=== PATIENT | female | born 1990 | race Hispanic/Latino ===

== ENCOUNTER 2017-11-18 15:30 | Outpatient (CLI) | payer BC ==
--- NOTE | 2017-11-18 17:11 | ULT ---
PELVIC ULTRASOUND: 11/18/17 HISTORY: Pelvic pain. FINDINGS: Multiple transabdominal and endovaginal sonographic images of the pelvis are obtained. The uterus demonstrates a normal sonographic appearance measuring 6.8 cm x 3.5 cm x 3.1 cm. The endom etrial stripe measures 0.4 cm which is within normal limits for patient's age. No fluid or fluid robbin ection is seen in the endometrial canal. The right ovary is enlarged measuring 7.5 cm x 4.2 cm x 5.7 cm. There is a large cystic lesion associ ated with the right ovary which measures 6.3 cm x 4.5 cm x 5.1 cm. Small amount of internal echogenic material is seen within this large cystic lesion. A few additional peripheral follicles are seen in the right ovary. The left ovary measures 3 cm x 1.8 cm x 1.9 cm and demonstrates a normal sonographic appearance with prominent peripheral follicles present at the periphery of the ovary. Doppler evaluation of each ovary with spectral analysis and color flow evaluation demonstrates arteri al flow seen within the right ovary with suggestion of arterial as well as venous flow in the left o vary although flow within the left ovary is faint and the difficulty in obtaining flow may be related to positioning of the ovary. Small amount of free fluid is seen in the cul-de-sac. IMPRESSION: 1. Large right ovarian cyst with internal echogenic material which may represent debris or small amount of hemorrhage. This measures 6.4 cm. There is arterial flow documented in the right ovary. Gi nickolas very large size, [employer] consultation may be helpful for further evaluation. 2. Polycystic ovaries. 3. Normal appearing uterus. POS: [facility]
== END 2017-11-18 15:31 | disposition home or self-care (01) ==
LOC: SCSULT 15:30
PROVIDERS: ATTEND Nurse Practitioner Family
DX: R10.2 Pelvic and perineal pain (principal); E28.2 Polycystic ovarian syndrome
CPT/HCPCS: 76856